=== PATIENT | male | born 1975 | race Two or more races ===

== ENCOUNTER 2016-10-06 02:15 | Inpatient (IN) | payer BC ==
[~2016-10-06] VITALS: Ht 167.6 cm; Wt 97.6 kg
[2016-10-06] MEDS ORDERED: IV NORMAL SALINE 500 ML BAG IV ONE (02:30)
[2016-10-06] MEDS ORDERED: NITROGLYCERIN 0.4 MG/TAB BOTTLE SL ONE ×3 (02:30→03:15)
--- NOTE | 2016-10-06 02:39 | NUR ---
AFTER 1ST DOSE OF NITRO SUB LINGUAL NO CHANGE IN CHEST PAIN. PAIN IS 6/10
[2016-10-06 02:44] LABS: BASOPHILS # (AUTO) 0.1 K/uL (0.0-8.0); BASOPHILS % (AUTO) 0.9 % (0.0-2.0); EOSINOPHILS # (AUTO) 0.4 K/uL (0.0-0.7); EOSINOPHILS % (AUTO) 5.1 % (0.0-7.0); HEMATOCRIT 44.7 % (40-50); HEMOGLOBIN 15.4 G/DL (14.0-18.0); LYMPHOCYTES # (AUTO) 3.8 K/UL (0.8-4.8); MEAN CORPUSCULAR HEMOGLOBIN 29.5 UUG (27.0-31.0); MEAN CORPUSCULAR HGB CONC 35 g/dL (32.0-37.0); MEAN CORPUSCULAR VOLUME 85.5 FL (82.0-92.0); MONOCYTES # (AUTO) 0.7 K/UL (0.1-1.30); MONOCYTES % (AUTO) 8.9 % (0.0-11.0); NEUTROPHILS # (AUTO) 2.8 K/UL (1.8-8.9); NEUTROPHILS % (AUTO) 36.1 % (38.5-71.5); PLATELET COUNT (AUTO) 260 K/UL (150-450); RED BLOOD CELL COUNT(AUTO) 5.23 MIL/UL (4.7-6.1); WHITE BLOOD COUNT (AUTO) 7.8 K/UL (4.0-11.2)
--- NOTE | 2016-10-06 02:44 | NUR ---
AFTER SECOND DOSE OF NITRO SUB LINGUAL CP IS UNCHANGED. C/O 08/29 CP PAIN RADIATING TO LEFT NECK,LEFT ARM AND LEG
[2016-10-06 02:48] LABS: POTASSIUM 3.4 mmol/L (3.5-5.1)
--- NOTE | 2016-10-06 02:50 | NUR ---
CP IS AT 6/10 RADIATING TO LEFT SIDE OF ARM AND LEG. NO CHANGE
[2016-10-06] MEDS ORDERED: LORAZEPAM 2 MG/1 ML VIAL IV ONE (03:00)
[2016-10-06 03:05] LABS: BILIRUBIN,DIRECT 0.2 mg/dL (0.0-0.2); BILIRUBIN,TOTAL 0.9 mg/dL (0.2-1.0); TOTAL PROTEIN, SERUM 7.6 g/dL (6.4-8.2)
--- NOTE | 2016-10-06 03:07 | NUR ---
PATIENT C/O ANXIETY. REQUESTING MEDICATION. DR CUADRA AWARE WITH ORDERS CARRIED OUT
[2016-10-06] MEDS ORDERED: ALPR0.255 PO (03:12)
[2016-10-06] MEDS ORDERED: AMLO10TA2 PO (03:12)
[2016-10-06] MEDS ORDERED: ALPRAZOLAM 0.25 MG TABLET PO PRN (03:15)
[2016-10-06] MEDS ORDERED: ENOXAPARIN SODIUM 40 MG/0.4 ML DISP.SYRIN SQ SCH (03:15)
[2016-10-06] MEDS ORDERED: ACETAMINOPHEN 325 MG TABLET PO PRN (03:15)
[2016-10-06] MEDS ORDERED: ONDANSETRON 4 MG/2 ML VIAL IV PRN (03:15)
[2016-10-06] MEDS ORDERED: MAGNESIUM HYDROXIDE 30 ML LIQUID UDC PO PRN (03:15)
[2016-10-06] MEDS ORDERED: LORAZEPAM 2 MG/1 ML VIAL ONE (03:16)
[2016-10-06] MEDS ORDERED: NITROGLYCERIN 0.4 MG/TAB BOTTLE SL PRN (03:30)
--- NOTE | 2016-10-06 03:55 | NUR ---
TRANSFERED TO 2ND FLOOR TELE VIA WHEELCHAIR
[2016-10-06 04:00] VITALS: BP 113/72
--- NOTE | 2016-10-06 04:00 | NUR ---
PT WAS BROUGHT IN TO FLOOR VIA WHEELCHAIR. ADMITTED TO TELE UNDER DR. AC/ ASA BLACK NP. DX: CHEST PAIN. UPON ARRIVAL PT C/O LEFT SHOULDER. LEFT ARM/ LEFT LEG PAIN RADIATING TO BACK AT THIS TIME. INITIATED ADMISSION ASSESSMENT. WILL CALL FOR ORDERS. BELONGING LISTS REVIEWED. CALL LIGHT WITHIN REACH.
[2016-10-06] MEDS ORDERED: ENOXAPARIN SODIUM 40 MG/0.4 ML DISP.SYRIN SQ ONE (04:30)
--- NOTE | 2016-10-06 05:58 | NUR ---
PT RESTING AT THIS TIME. IN NO ACUTE SIGNS OF DISTRESS. SAFETY MAINTAINED. CALL LIGHT WITHIN REACH.
[2016-10-06] MEDS ORDERED: PANTOPRAZOLE SODIUM 40 MG TABLET.DR PO SCH (07:00)
[2016-10-06 07:54] LABS: PHOSPHOROUS 3.9 mg/dL (2.5-4.9)
--- NOTE | 2016-10-06 08:00 | NUR ---
RESTING IN BED NO SIGNS OF DISTRESS EXCEPT FOR LEFT LEG PAIN
[2016-10-06] MEDS ORDERED: ASPIRIN 325 MG TABLET PO SCH (09:00)
[2016-10-06] MEDS ORDERED: AMLODIPINE 10 MG TABLET PO SCH (09:00)
[2016-10-06] MEDS ORDERED: AMLODIPINE 5 MG TABLET PO SCH (09:00)
--- NOTE | 2016-10-06 10:00 | NUR ---
DR GILL MADE AWARE OF LEFT LEG PAIN
--- NOTE | 2016-10-06 11:13 | NUR ---
VERY ANXIOUS AND RESTLESS BUT NO CHEST PAIN OR SOB, PRN XANAX GIVEN AND OBSERVED
[2016-10-06 11:22] VITALS: BP 132/84
[2016-10-06] MEDS ORDERED: POTASSIUM CHLORIDE 20 MEQ TAB.PRT.SR PO ONE (14:30)
[2016-10-06 15:04] VITALS: BP 136/80
--- NOTE | 2016-10-06 16:45 | NUR ---
PATIENT DISCHARGE WENT HOME WITHOUT DISCHARGED PAPERS DISCHARGED INSTRUCTION GIVEN BY DR GILL TO FOLLOW-UP OWN WELFARE AIDE
== END 2016-10-06 16:45 | disposition home or self-care (01) | DRG 313 ==
LOC: ER 02:17 → TELE 03:15
PROVIDERS: ADMIT Nurse Practitioner Acute Care; ATTEND Family Medicine
DX: R07.9 Chest pain, unspecified (principal); K57.92 Diverticulitis of intestine, part unspecified, without perforation or abscess without bleeding; I10 Essential (primary) hypertension; K76.0 Fatty (change of) liver, not elsewhere classified; E87.6 Hypokalemia; F41.0 Panic disorder [episodic paroxysmal anxiety]; Z88.6 Allergy status to analgesic agent; Z88.5 Allergy status to narcotic agent
CPT/HCPCS: 36415; 70030-TC; 71010; 83735; 84100; 85025; 85730; 93005; 93307; A4663; J1650; J2060; J7040

== ENCOUNTER 2019-09-14 22:36 | Emergency (ER) | payer BC ==
[~2019-09-14] VITALS: Ht 165.1 cm; Wt 107.5 kg
[~2019-09-14 22:36] MED LIST: ALPR0.255 PO; AMLO10TA7 PO
--- NOTE | 2019-09-14 22:50 | NUR ---
Patient ambulated with stable gait. A/Ox4. Speech is clear, speaks in complete sentences. No acute neuro deficits noted. Patient came for c/o chest pain. Respiratory even and unlabored, no cough no sob. Denies any n/v/d, abd pain or any gu distress. Reports having an increased frequency in alcohol consumption over the past months.
[2019-09-14] MEDS ORDERED: ASPI-612 PO (22:53)
[2019-09-14] MEDS ORDERED: CARV12.52 PO (22:53)
[2019-09-15 00:07] LABS: BASOPHILS # (AUTO) 0.1 K/uL (0.0-8.0); EOSINOPHILS # (AUTO) 0.6 K/uL (0.0-0.7); EOSINOPHILS % (AUTO) 9.6 % (0.0-7.0); HEMATOCRIT 44.1 % (36.7-47.1); HEMOGLOBIN 15.2 g/dL (12.5-16.3); LYMPHOCYTES # (AUTO) 2.4 K/uL (20.0-40.0); LYMPHOCYTES % (AUTO) 38.5 % (20.5-51.5); MEAN CORPUSCULAR HEMOGLOBIN 29.6 uug (23.8-33.4); MEAN CORPUSCULAR HGB CONC 34 g/dL (32.5-36.3); MEAN CORPUSCULAR VOLUME 86.2 fL (73.0-96.2); MONOCYTES # (AUTO) 0.6 K/uL (2.0-10.0); MONOCYTES % (AUTO) 10.4 % (0.0-11.0); NEUTROPHILS # (AUTO) 2.5 K/uL (1.8-8.9); NEUTROPHILS % (AUTO) 40.5 % (38.5-71.5); PLATELET COUNT (AUTO) 236 K/uL (152-348); RED BLOOD CELL COUNT(AUTO) 5.12 MIL/uL (4.06-5.63); WHITE BLOOD COUNT (AUTO) 6.2 K/uL (3.6-10.2)
[2019-09-15 00:16] LABS: CREATININE 1.2 mg/dL (0.6-1.3); POTASSIUM 3.8 mmol/L (3.5-5.1)
[2019-09-15 00:28] LABS: BILIRUBIN,DIRECT 0.1 mg/dL (0.0-0.2); BILIRUBIN,TOTAL 0.7 mg/dL (0.2-1.0)
[2019-09-15] MEDS ORDERED: ONDANSETRON 4 MG/2 ML VIAL IV PRN (01:15)
[2019-09-15] MEDS ORDERED: ALPRAZOLAM 0.25 MG TABLET PO PRN (01:15)
[2019-09-15] MEDS ORDERED: NITROGLYCERIN 0.4 MG/TAB BOTTLE SL PRN (01:15)
[2019-09-15] MEDS ORDERED: MORPHINE SULFATE 2 MG/1 ML DISP.SYRIN IV PRN (01:15)
--- NOTE | 2019-09-15 01:17 | NUR ---
Patient in bed at lowest position, sr upx2, call light within reach. Patient resting comfortably, no acute distress noted, vital signs stable.
[2019-09-15] MEDS ORDERED: IBUPROFEN 600 MG TABLET PO ONE (01:45)
[2019-09-15] MEDS ORDERED: IBUPROFEN 600 MG TABLET ONE (01:54)
[2019-09-15 01:59] LABS: ETHANOL < 3 MG/DL (0-0)
--- NOTE | 2019-09-15 02:14 | NUR ---
Patient discharged to home in stable condition. Written and verbal after care instructions given. Patient verbalizes understanding of instructions. Stressed follow up or return to ER for worsening s/s.
[2019-09-15 02:15] VITALS: BP 130/70
[2019-09-15 02:21] LABS: THYROID STIMULATING HORMONE 1.486 mIU/mL (0.358-3.740)
[2019-09-15] MEDS ORDERED: AMLODIPINE 10 MG TABLET PO SCH (09:00)
[2019-09-15] MEDS ORDERED: ASPIRIN 325 MG TABLET PO SCH (09:00)
[2019-09-15] MEDS ORDERED: CARVEDILOL 12.5 MG TABLET PO SCH (09:00)
== END 2019-09-15 02:15 | disposition home or self-care (01) ==
LOC: ER 22:36
DX: R07.9 Chest pain, unspecified (principal); F10.10 Alcohol abuse, uncomplicated; I10 Essential (primary) hypertension; R74.0 Nonspecific elevation of levels of transaminase and lactic acid dehydrogenase [LDH]; E66.9 Obesity, unspecified; Z82.49 Family history of ischemic heart disease and other diseases of the circulatory system; F41.9 Anxiety disorder, unspecified; Z79.82 Long term (current) use of aspirin; Z79.899 Other long term (current) drug therapy; R94.31 Abnormal electrocardiogram [ECG] [EKG]
CPT/HCPCS: 36415; 70030-TC; 71045; 84443; 85025; 85730; 93005; G0480